=== PATIENT | female | born 1960 | race Caucasian/White ===

== ENCOUNTER 2017-03-22 10:12 | Outpatient (CLI) ==
--- NOTE | 2017-03-23 11:49 | MAMMO ---
EXAM: Bilateral digital screening mammogram History: Screening Comparison: Bilateral mammogram 06/23/2015 Findings: MLO and CC views of bilateral breasts demonstrate scattered fibroglandular breast parench yma. Stable benign bilateral breast calcifications. There are no dominant masses, no suspicious mi crocalcifications and no architectural distortions Impression: Benign stable mammogram. Recommend followup routine screening mammography in 1 year. BIRADS 2
== END 2017-03-22 10:13 | disposition home or self-care (01) ==
LOC: RAD 10:12
PROVIDERS: ATTEND Family Medicine
DX: Z12.31 Encounter for screening mammogram for malignant neoplasm of breast (principal)

== ENCOUNTER 2017-12-01 08:15 | Outpatient (CLI) ==
--- NOTE | 2017-12-01 08:59 | US ---
EXAM: Ultrasound abdomen limited. HISTORY: Elevated liver enzymes. COMPARISON: CT 08/01/2011. TECHNIQUE: Abdominal, real time with image documentation: limited (eg, single organ, quadrant, foll ow-up) FINDINGS: The liver demonstrates increased parenchymal echogenicity with a coarsened echotexture pat tern. There is no intrahepatic biliary dilatation. Portal venous flow is normal in direction. The gallbladder is absent. Common duct measures approximately 0.6 cm. Visualized portions of the pancre as are unremarkable. IMPRESSION: Fatty infiltration of the liver.
== END 2017-12-01 08:16 | disposition home or self-care (01) ==
LOC: RAD 08:15
PROVIDERS: ATTEND Family Medicine
DX: R74.8 Abnormal levels of other serum enzymes (principal)

== ENCOUNTER 2018-08-28 12:54 | Outpatient (CLI) | payer OTHER | END 2018-08-28 12:55 | disposition home or self-care (01) | LOC: RAD 12:54 | PROVIDERS: ATTEND Family Medicine | DX: Z12.31 Encounter for screening mammogram for malignant neoplasm of breast (principal) | CPT/HCPCS: 77067 ==